=== PATIENT | male | born 2000 | race Caucasian/White ===

== ENCOUNTER 2024-03-24 01:01 | Emergency (ER) | payer OTHER, SELFPAY ==
--- NOTE | ~2024-03-24 | CT_ITS ---
EXAMINATION: CT brain wo con DATE: 03/24/2024 02:05 INDICATION: Altered mental status TECHNIQUE: Computed tomography (CT) of the head was performed without intravenous contrast. Sagittal and coronal reconstructions were performed. The mA was adjusted according to patient size. Iterative reconstruction technique was employed. The dose-length product was 681.00 mGy-cm. COMPARISON: None FINDINGS: There is no acute or chronic intracranial hemorrhage. There is no infarct. The ventricles are normal and symmetric. The orbits and mastoid air cells are normal. Mild mucosal thickening in the left ethmo id sinus. IMPRESSION: 1. Normal brain. Reviewed, dictated and finalized at location A. TOR IMPRESSION: 1. Normal brain.
[2024-03-24 01:03] VITALS: BP 134/80; PULSE 93; RESP 21; TEMP 35.2; O2SAT 100
[2024-03-24 01:19] VITALS: TEMP 35.2
[2024-03-24 01:35] LABS: Basophils Absolute Auto 0.1 K/mm3 (0.0-0.1); Basophils Percent Auto 0.7 % (0.2-1.2); Eosinophils Percent Auto 0.3 % (0-4.4); Hematocrit 45.6 % (42.0-52.0); Hemoglobin 15.5 g/dL (14.0-18.0); Immature Granulocyte Absolute 0.04 K/mm3 (0.00-0.031); Immature Granulocyte Percent A 0.3 % (0-0.5); Lymphocytes Absolute Auto 1.74 K/mm3 (0.9-3.2); Lymphocytes Percent Auto 14.3 % (18.3-44.2); Mean Platelet Volume 9.3 fl (7.4-10.4); Monocytes Absolute Auto 1.2 K/mm3 (0.1-0.6); Monocytes Percent Auto 9.9 % (2.6-8.5); Neutrophils Absolute Auto 9.1 K/mm3 (1.3-6.7); Neutrophils Percent Auto 74.5 % (45.5-73.1); Platelet Count Result 228 k/mm3 (150-375); Red Blood Count 4.85 M/mm3 (4.6-6.20); Red Cell Distribution Width 11.8 % (11.5-14.5); White Blood Count 12.2 K/mm3 (4.5-10.0)
[2024-03-24 01:42] LABS: Glucose Point of Care 129 mg/dl (65-105)
[2024-03-24 01:46] LABS: Alanine Aminotransferase 19 U/L (6-50); Albumin Level 4.8 g/dL (3.5-5.1); Alkaline Phosphatase 87 U/L (38-126); Anion Gap 13 mmol/L (4-12); Aspartate Amino Transferase 25 U/L (17-59); Bilirubin,Total 0.7 mg/dL (0.2-1.3); Blood Urea Nitrogen 7 mg/dL (9-20); Calcium 8.7 mg/dL (8.4-10.2); Carbon Dioxide 21 mmol/L (22-30); Chloride 106 mmol/L (98-107); Estimated CRCL calculation 119 ml/min; Estimated Glomerular Filt Rate > 60; Glucose 143 mg/dL (65-110); Potassium 2.9 mmol/L (3.4-5.0); Sodium 140 mmol/L (137-145)
[2024-03-24 01:48] LABS: Ethanol 248 mg/dL (<10)
[2024-03-24] MEDS: SODIUM CHLORIDE 0.9% IV 3,000 ML 999 ML IV CONT (01:48)
[2024-03-24] MEDS: ONDANSETRON INJ 4 MG/2 ML VIAL IV PUSH (01:48)
[2024-03-24 02:11] LABS: Amphetamine Screen Urine Negative (Negative); Barbiturate Screen Urine Negative (Negative); Benzodiazepines Screen Urine Negative (Negative); Cannabinoid Screen Urine Negative (Negative); Cocaine Screen Urine Negative (Negative); Methadone Screen Urine Negative (Negative); Opiate Screen Urine Negative (Negative); Phencyclidine Screen Urine Negative (Negative)
[2024-03-24] MEDS: POTASSIUM CHLORIDE INJ 40 MEQ in SODIUM CHLORIDE 0.9% IV 500 ML 130 MEQ IVPB (02:31)
--- NOTE | 2024-03-24 02:52 | ED_ITS ---
HPI - General Adult General Chief complaint: Alcohol Stated complaint: etoh History of Present Illness HPI narrative: This is a 23-year-old male presenting for intoxication. Patient was out at a bar celebrating . He drink a large amount of alcohol. He in a any food. Ambulance was called because he passed out. History obtained from family who spoke to 1 of his friends. Patient is currently laying on the bed moaning. Related Data Allergies Allergy/AdvReac Type Severity Reaction Status Date / Time No Known Allergies Allergy Verified 03/24/24 01:49 Exam 2 Narrative: APPEARANCE:Patient is pale and diaphoretic Head: atraumatic. EYES: EOMI, NOSE: Atraumatic NECK: Trachea midline RESPIRATORY: No increased rate of breathing clear to auscultation CARDIOVASCULAR: RRR, ABDOMINAL: Non-distended soft nontender MUSCULOSKELETAl: No obvious deformities NEURO: Alert. Moving 4/4 extremities Course Vital Signs Vital signs: Vital Signs Temperature 95.4 F L 03/24/24 01:03 Pulse Rate 93 03/24/24 01:03 Respiratory Rate 21 H 03/24/24 01:03 Blood Pressure 134/80 03/24/24 01:03 Pulse Oximetry 100 03/24/24 01:03 Temperature 97.7 F 03/24/24 03:27 Pulse Rate 89 03/24/24 03:27 Respiratory Rate 15 03/24/24 03:27 Blood Pressure 126/78 03/24/24 03:27 Pulse Oximetry 100 03/24/24 03:27 Medical Decision Making [facility] Narrative Medical decision making narrative: -Course: 23-year-old male presenting after being found down at a bar. Alcohol level 248. blood glucose normal. Patient given 3 L of fluid. Given potassium supplementation. Official read on the CT head was still pending, however the patient has woken up and is now A&O x3 admits to drinking a large amount. No history/signs of trauma. They are requesting discharge. Patient is discharged into the care of his parents. -DDX includes but is not limited to: Alcohol abuse, substance use disorder, ICH Vital Signs Vital Signs: Vital Signs Temperature 95.4 F L 03/24/24 01:03 Pulse Rate 93 03/24/24 01:03 Respiratory Rate 21 H 03/24/24 01:03 Blood Pressure 134/80 03/24/24 01:03 Pulse Oximetry 100 03/24/24 01:03 Temperature 97.7 F 03/24/24 03:27 Pulse Rate 89 03/24/24 03:27 Respiratory Rate 15 03/24/24 03:27 Blood Pressure 126/78 03/24/24 03:27 Pulse Oximetry 100 03/24/24 03:27 Lab Data 03/24/24 01:28 03/24/24 01:28 Labs: Lab Results 03/24/24 03/24/24 03/24/24 Range/Units 01: 01:28 01:47 WBC 12.2 H (4.5-10.0) K/mm3 RBC 4.85 (4.6-6.20) M/mm3 Hgb 15.5 (14.0-18.0) g/dL Hct 45.6 (42.0-52.0) % MCV 94.0 (80-100) fl MCH 32.0 (26-34) pg MCHC 34.0 (32-36) g/dl RDW 11.8 (11.5-14.5) % Plt Count 228 (150-375) k/mm3 MPV 9.3 (7.4-10.4) fl Immature Gran % (Auto) 0.3 (0-0.5) % Neut % (Auto) 74.5 H (45.5-73.1) % Lymph % (Auto) 14.3 L (18.3-44.2) % [place] % (Auto) 9.9 H (2.6-8.5) % Eos % (Auto) 0.3 (0-4.4) % Baso % (Auto) 0.7 (0.2-1.2) % Lymph # (Auto) 1.74 (0.9-3.2) K/mm3 [place] # (Auto) 1.2 H (0.1-0.6) K/mm3 Eos # (Auto) 0.0 (0-0.3) K/mm3 Baso # (Auto) 0.1 (0.0-0.1) K/mm3 Abs Immat Gran (auto) 0.04 H (0.00-0.031) K/mm3 Absolute Neuts (auto) 9.1 H (1.3-6.7) K/mm3 Absolute Nucleated RBC 0.000 (0.0-0.012) K/mm3 Nucleated RBC % 0.0 (0.0-0.2) % Sodium 140 (137-145) mmol/L Potassium 2.9 L (3.4-5.0) mmol/L Chloride 106 (98-107) mmol/L Carbon Dioxide 21 L (22-30) mmol/L Anion Gap 13 H (4-12) mmol/L BUN 7 L (9-20) mg/dL Creatinine 0.70 (0.7-1.3) mg/dL Estim Creat Clear Calc 119 ml/min Estimated GFR > 60 (59 - ) Glucose 143 H (65-110) mg/dL POC Capillary Glucose 129 H (65-105) mg/dl Calcium 8.7 (8.4-10.2) mg/dL Total Bilirubin 0.7 (0.2-1.3) mg/dL AST 25 (17-59) U/L ALT 19 (6-50) U/L Alkaline Phosphatase 87 (38-126) U/L Total Protein 8.0 (6.3-8.2) g/dL Albumin 4.8 (3.5-5.1) g/dL Urine Opiates Screen Negative (Negative) Urine Methadone Screen Negative (Negative) Ur Barbiturates Screen Negative (Negative) Ur Phencyclidine Scrn Negative (Negative) Ur Amphetamine Screen Negative (Negative) U Benzodiazepines Scrn Negative (Negative) Urine Cocaine Screen Negative (Negative) U Cannabinoids Screen Negative (Negative) Ethyl Alcohol 248 (<10) mg/dL Discharge Plan Discharge Clinical Impression: Alcoholic intoxication Patient Disposition: Home, Self-Care Condition: Stable Instructions: Antibiotic Form, Abuse of Alcohol (ED) Additional Instructions: Please drink responsibly. Return if you develop any new or worsening symptoms. Patient Language: Iraqi Prescriptions: New ondansetron 4 mg tablet,disintegrating 4 mg PO Q8H PRN (Reason: nausea and vomiting) Qty: 30 0RF
[2024-03-24 03:27] VITALS: BP 126/78; PULSE 89; RESP 15; TEMP 36.5; O2SAT 100
[2024-03-24] MEDS: POTASSIUM CHLORIDE 20 MEQ PACKET (FOR LIQUID) 40 MEQ PO (04:26)
[2024-03-24 04:33] VITALS: BP 126/84; PULSE 68; RESP 15; O2SAT 100
--- OUTSIDE RECORDS SUMMARY | 2024-03-31 02:10 | XMS_ITS | Clinical Summary ---
Author Organization [facility] [address] [facility] Address [address] [address] Care Team Providers Care Internet Systems Administrator Name Role Phone Carlyle Stokes MD Primary Care Provider [phone] Karolina Martínez FIBER DESIGN ENGINEER Unavailable [phone] Allergies No known active allergies Medications ondansetron ODT (ZOFRAN-ODT) 4 mg disintegrating tablet Dissolve 1 tablet oral every 4 hours as needed for nausea or vomiting. 15 tablet 3 Active MULTIVITAMIN ORAL Take 1 tablet by mouth daily Active adapalene-benzoyl peroxide (Epiduo Forte) 0.3-2.5 % gel with pumpIndications:Ac ne, unspecified acne type Apply 0.25 g (1 Pump total) topically nightly APPLY A PEA-SIZED AMOUNT TOPICALLY TO CLEAN DRY SKIN AT BEDTIME 45 g 11 4 Active Active Problems Problem Noted Date Diagnosed Date Annual physical exam 05/20/2023 Assessment & Plan (05/20/2023 10:20 AM PROBATION COUNSELOR): Visit preventive in nature. Screening labs ordered. Will message through [employer] for results once received. Reviewed safety and congratulated on healthy lifestyle. Follow up in 1 year or sooner for any concerns. Acne 05/20/2023 Assessment & Plan (05/20/2023 10:21 AM PROBATION COUNSELOR): Well controlled on Epiduo. History of choking 07/26/2022 Assessment & Plan (07/26/2022 11:29 AM CDT): Reviewed ER documentation and imaging. Patient is doing well and not having any difficulty eating/choking at this time. No longer feeling any nausea. No cough or reflux symptoms. I reviewed follow-up precautions with patients and he will follow-up as needed. BMI less than 19,adult 07/26/2022 Scoliosis 07/26/2022 Assessment & Plan (07/26/2022 1:53 PM CDT): Very mild; denies neck, back or hip pain. Will continue to monitor. Encounter for medical examination to establish c are 01/25/2021 Assessment & Plan (01/25/2021 3:43 PM CDT): -reviewed screening guidelines: no family history of breast or colon cancer. -Colonoscopy recommended at 50 years of age. -UTD on immunizations. Declines flu vaccine. -discussed diet/exercise: daily recommendations of 20-30 minutes physical activity daily, watch fat/sugar intake. -denies safety/violence. Wears seatbelt. Aware to not text/talk and drive. -does not smoke nor drink ETOH -lives at home with supportive family Anticipatory guidelines for teenagers: -healthy dietary habits. -reduction of injuries through helmets for bicycle/motorcycle and car seatbelts -regular exercise: 20-30 minutes per day at minimum -good sleep habits: optimal sleep for teen is 8-10 hours per night -sun protection: sunscreen, long sleeves, hats when out in sun. -responsible sexual behaviors: abstinence, condoms. Safe versus safer sex. -avoidance of tobacco, alcohol and illegal substances. -social media: avoid online behaviors that have negative consequences (sexting, sharing personal information/pictures with strangers) -strategies to deal with bullying. Refused influenza vaccine 01/25/2021 Assessment & Plan (01/25/2021 3:39 PM CDT): Discussed and the patient refuses immunization today. Educated regarding the need to vaccinate for personal protection and to limit the viruses in the community to protect those most vulnerable. Resolved Problems Problem Noted Date Diagnosed Date Resolved Date Body mass index (BMI) less than 16.5 01/25/2021 07/26/2022 Assessment & Plan (01/25/2021 3:39 PM CDT): Watches intake & exercises. Discussed healthy diet and importance of regular physical activity. Encounter for screening for lipid disorder 01/25/2021 01/25/2021 Encounters Date Type Department Care Team Description 03/24/2024 Orders Only [facility] Health Information Management [address] [place] [id number] Scanning, Provider from Last 3 Months Immunizations Name Administration Dates Next Due DTaP 10/22/2007, 5,04/12/2003,02/09,2002 HPV9 05/23/2017,10/10/2016 Hep A, Pediatric 04/15/2013,09/25/2012 Hep B / HiB 02/09/2003,2002 Hep B, Adolescent or Pediatric 04/25/2004 HiB 01/13/2004 IPV 10/22/2007, 5,02/09/2003,12/16 Influenza LAIV (Nasal) 02/04/2012 Influenza Nasal, Unspecified 01/15/2013 Influenza, Quadrivalent, Gisel l Culture-based MDCK, Preservative Free, Antibiotic Free, Intramuscular 01/01/2020,02/24/2019,01/10/2018,12/30 Influenza, Quadrivalent, Rec ombinant, Egg Free, Preservative Free, Intramuscular 02/02/2021 Influenza, Quadrivalent, Spl it, Preservative Free, Intramuscular 01/04/2022,01/01/2016,12/12/2014 Influenza, Trivalent, IM (MDV) 01/03/2014 Influenza, Unspecified 05/20/2023(Deferr ed: Patient Refused),12/22/2021(Deferred: Patient Refused),01/25/2021(Deferred: Patient Refused) MMR 10/22/2007,10/19/2003 Meningococcal B, OMV (Bexsero) 11/04/2019,2018 Meningococcal Conjugate (Menveo) 10/22/2018,09/21 Pneumococcal Conjugate 7-Valent 01/13/20 04,04/12/2003,02/09/2003,12/16 Tdap 10/01/2013 Varicella 09/25/2012,10/19/2003 Surgical History Surgery Date Site/Laterality Comments TONSILLECTOMY 03/24/2008 - 03/23/2009 Bilateral WISDOM TOOTH EXTRACTION 03/24/2018 - 03/23/2019 Bilatera l Medical History Medical History Date Comments Heart murmur 09/2002 Family History Medical History Relation Name Comments Cancer Maternal Grandfather Andres Sherman Coronary artery disease Maternal Grandfather Andres francis Pancreatic cancer Maternal Grandfather Andres Sherman Relation Name Status Comments Father Kade Alive Maternal Grandfather Andres Sherman Alive Mother Avis Alive Social History Tobacco Use Types Packs/Day Years Used Date Smoking Tobacco: Never Cigarettes Smokeless Tobacco: Never Tobacco Cessation:Counseling Given: Not Answered AUDIT-C Answer Date Recorded Q1: How often do you have a drink containing alcohol? Never 05/20/2023 Q2: How many drinks containi ng alcohol do you have on a typical day when you are drinking? Patient does not drink Q3: How often do you have si x or more drinks on one occasion? Never 05/20/2023 PHQ-2 Answer Date Recorded PHQ-2 Total Score (If total score is 3 or more points, staff should administer the PHQ-9) 0 05/20/2023 Personal Safety Answer Date Recorded Getting School Help Needed Not on file 09/13 Sex and Gender Information Value Date Recorded Sex Assigned at Not on file Legal Sex Male 2:03 PM CDT Gender Identity Male 03/19/2024 9:16 AM PROBATION COUNSELOR Sexual Orientation Straight 03/19/2024 9: 16 AM PROBATION COUNSELOR Obstetrics History Last Filed Vital Signs Vital Sign Reading Time Taken Comments Blood Pressure 130/66 05/20/2023 9:59 AM PROBATION COUNSELOR Pulse 92 05/20/2023 9:59 AM PROBATION COUNSELOR Temperature 36.9 ??C (98.4 ??F) 05/20/2023 9:59 AM CS T Respiratory Rate 18 05/20/2023 9:59 AM PROBATION COUNSELOR Oxygen Saturation 96% 05/20/2023 9:59 AM PROBATION COUNSELOR Inhaled Oxygen Concentration - - Weight 56.2 kg (123 lb 12.8 oz) 05/20/2023 9:59 AM PROBATION COUNSELOR Height 181.6 cm (5' 11.5 ) 05/20/2023 9:59 AM CS T Body Mass Index 17.03 05/20/2023 9:59 AM PROBATION COUNSELOR Plan of Treatment Health Maintenance Due Date Last Done Comments Hepatitis C Screening 2002 DTaP/Tdap/Td Vaccine (7 - Td or Tdap) 10/02/2023 10/01/2013, 10/22/2007, 04/25/2004, Additional history exists Covid-19 Vaccine (4 - 2023-2 5 season) 2023 04/12/2021, 08/28/2020, 08/07/2020 Influenza Vaccine (#1) 2023 , 02/02/2021, 01/01/2020, Additional history exists Depression Screening 05/20/2024 05/20/2023, 07/26/2022, 01/28/2022, Additional history exists Regular Well Visit/Exam 18-64 05/20/2024 05/20/2023, 01/28/2022 Pneumococcal vaccine <65 Completed 004, 04/12/2003, 02/09/2003, Additional history exists Varicella Vaccines Completed 09/25/2012, 10/19/2003 HPV Vaccines Completed 05/23/2017, 10/10/2016 Meningococcal Vaccine Completed 10/22/2018, 015 Meningococcal B Vaccine Completed 11/04/2019, 10/22 Procedures Procedure Name Priority Date/Time Associated Diagnosis Comments SCAN - RADIOLOGY/IMAGING 03/24/2024 from Last 3 Months Results * SCAN - RADIOLOGY/IMAGING (03/24/2024) Anatomical Region Laterality Modality Other us Provider Scanning Final Result from Last [address] [place] [address] [facility] Address: [address] [address] [facility] Address: [facility] [id number] [place] [phone] [employer] [facility] H[facility]/PPO Address: [address] [address] [place] [address] Care Teams Internet Systems Administrator Relationship Specialty Start Date End Date Carlyle Stokes MD [address] [place] [id number] PCP - General Family Medicine 05/24/21 Karolina Martínez NP [address] [place] [address] Nurse Practitioner Family Medicine 05/24/21
--- OUTSIDE RECORDS SUMMARY | 2024-03-31 02:10 | XMS_ITS | Clinical Summary ---
Author Organization [facility] Address [address] [place] [phone] Phone Care Team Providers Care Investment Officer Name Role Phone Provider, Unknown Primary Care Provider Unavaila ble Allergies No known active allergies Medications Multiple Vitamin (MULTIVITAMIN PO) Take by mouth. Active Adapalene-Benzoy l Peroxide 0.3-2.5 % Gel Apply 1 Pump. 01/28/2022 Active Active Problems No known active problems Social History Tobacco Use Types Packs/Day Years Used Date Smoking Tobacco: Never Smokeless Tobacco: Never Tobacco Cessation:Counseling Given: Not Answered Alcohol Use Standard Drinks/Week Comments Never 0 (1 standard drink = 0.6 oz pur e alcohol) Sex and Gender Information Value Date Recorded Sex Assigned at Not on file Legal Sex Male 7:13 PM CDT Gender Identity Not on file Sexual Orientation Not on file Last Filed Vital Signs Vital Sign Reading Time Taken Comments Blood Pressure 122/66 12/28/2022 1:24 PM CDT Pulse 112 12/28/2022 1:24 PM CDT Temperature 38.5 ??C (101.3 ??F) 12/28/2022 1:24 PM C DT Respiratory Rate 18 12/28/2022 1:24 PM CDT Oxygen Saturation 99% 12/28/2022 1:24 PM CDT Inhaled Oxygen Concentration - - Weight - - Height - - Body Mass Index - - Plan of Treatment Health Maintenance Due Date Last Done Comments Hepatitis C Virus (HCV) Screening 2002 Influenza Immunization (#1) 11/23/202312/22, 02/02/2021, 01/01/2020, Additional history exists SARS-COV-2 Immunization (4 - 2024-25 season) 2023 04/12/2021, 08/28/2020, 08/07/2020 Respiratory Syncytial Virus (RSV) Immunization (Adult) (1 - 1-dose 75+ series) 2077 Pneumococcal Immunization Combined Aged Out 01/13/2004, 04/12/2003, 02/09/2003, Additional history exists No longer eligible based on patient's age to complete this topic Hepatitis B Immunization Completed 005, 02/09/2003, 2002 DTaP/Tdap/Td Immunization Discontinued 2013, 10/22/2007, 04/25/2004, Additional history exists TdaP Immunization Completed 10/01/2013 Human Papillomavirus (HPV) Immunization Completed 05/23/2017, 10/10/2016 Meningococcal Immunization (ACWY) Completed 10/22/2018, 10/06/2014 Meningococcal B Immunization Completed 11/04/2019, 10/22/2018 Rotavirus Immunization Aged Out No lo nger eligible based on patient's age to complete this topic Insurance Care Teams Investment Officer Relationship Specialty Start Date End Date Provider, Unknown UNKNOWN PCP - General 12/28/22
--- OUTSIDE RECORDS SUMMARY | 2024-03-31 02:10 | XMS_ITS | Encounter Summary ---
Author Organization [facility] Address [address] [place] [address] Phone Care Team Providers Care Marble Setter Helper Name Role Phone Provider, Unknown Primary Care Provider Unavaila ble Reason for Visit * Reason Comments Cough Sore Throat Fever Encounter Details Date Type Department Care Team (Latest Contact Info) Description 12/28/2022 1:30 PM CDT Urgent Care Visit [facility] [place] [id number] [place] [id number] Andrea Rangel, RIA [facility] [place] [id number] Bacterial upper respiratory infection (Primary Dx); Sore throat; Fever, unspecified fever cause Discharge Disposition: Discharged to home or Selfcare Social History Tobacco Use Types Packs/Day Years [...] on file Sexual Orientation Not on file COVID-19 Exposure Response Date Recorded In the last 10 days, have yo u been in contact with someone who was confirmed or suspected to have Coronavirus/COVID-19? No / Unsure 12/28/2022 1:17 PM CDT documented as of this encounter Last Filed Vital Signs Vital Sign Reading Time Taken Comments Blood Pressure 122/66 12/28/2022 1:24 PM CDT Pulse 112 12/28/2022 1:24 PM CDT Temperature 38.5 ??C (101.3 ??F) 12/28/2022 1:24 PM C DT Respiratory Rate 18 12/28/2022 1:24 PM CDT Oxygen Saturation 99% 12/28/2022 1:24 PM CDT Inhaled Oxygen Concentration - - Weight - - Height - - Body Mass Index - - documented in this encounter Patient Instructions * Patient Instructions* Andrea Rangel PAC - 12/28/2022 1:30 PM CDT Rx for amoxicillin sent to pharmacy Patient given pharyngitis and upper respiratory infection discharge instructions See your primary care provider in 3-4 days if not better Patient given 600 mg ibuprofen p.o. without complication * Attachments The following attachments cannot be sent through Care Everywhere. * Pharyngitis [id number] (Cypriot) * Upper Respiratory Infection Adult [id number] (Cypriot) documented in this encounter Progress Notes * Nick Ivan - 12/28/2022 1:30 PM CDT Ronald complains of Cough, sore throat, nasal congestion, headache, and fever. Pt states symptoms started last Friday and have worsened since onset. Pt states. Pt denies body aches, nausea and vomiting. Pt has taken tylenol and cough syrup, which have provided mild relief. Pt states temperature reached over 102F last weekend. Pt states sore throat pain is currently 2/10 but was 8/10 yesterday. Cough This is a new problem. Episode onset: last Friday. The problem has been gradually worsening. The problem occurs constantly. Associated symptoms include a fever, headaches, nasal congestion and a sore throat. Treatments tried: tylenol and cough syrup. The treatment provided mild relief. Sore Throat Associated symptoms include headaches. Fever Associated symptoms include headaches and a sore throat. Today's Review of Systems Constitutional: Positive for fever. HENT: Positive for sore throat. Neurological: Positive for headaches. * Andrea Rangel, PAC - 12/28/2022 1:30 PM CDT HPI: Ronald Christensen is a 22 y.o. male in the [facility] care today for one-week history of fatigue, fever, postnasal drainage, runny nose, sinus pressure, sore throat, cough and headache, he has taken Tylenol and cough syrup for this which have not helped, he has been vaccinated for COVID, no known COVID exposure There is no problem list on file for this patient. Available past, family, surgical, and social history reviewed and updated in the chart. ROS: Review of Systems Constitutional: Positive for fatigue and fever. Negative for chills. HENT: Positive for postnasal drip, rhinorrhea, sinus pressure and sore throat. Negative for ear pain. Eyes: Negative for pain and visual disturbance. Respiratory: Positive for cough. Negative for shortness of breath. Cardiovascular: Negative for chest pain and palpitations. Gastrointestinal: Negative for abdominal pain and vomiting. Genitourinary: Negative for dysuria and hematuria. Musculoskeletal: Negative for arthralgias and back pain. Skin: Negative for color change and rash. Neurological: Positive for headaches. Negative for seizures and syncope. All other systems reviewed and are negative. PE: BP 122/66 (BP Location: Right Arm, BP Position: Sitting, BP Cuff Size: Large) Pulse (!) 112 Temp (!) 101.3 ??F (38.5 ??C) (Temporal) Resp 18 SpO2 99% Physical Exam Vitals and nursing note reviewed. Constitutional: General: He is not in acute distress. Appearance: He is well-developed. Comments: Temperature 101.3??, heart rate 112 HENT: Head: Normocephalic and atraumatic. Right Ear: Tympanic membrane, ear canal and external ear normal. Left Ear: Tympanic membrane, ear canal and external ear normal. Mouth/Throat: Pharynx: Posterior oropharyngeal erythema present. Eyes: Conjunctiva/sclera: Conjunctivae normal. Cardiovascular: Rate and Rhythm: Normal rate and regular rhythm. Pulses: Normal pulses. Heart sounds: No murmur heard. Pulmonary: Effort: Pulmonary effort is normal. No respiratory distress. Breath sounds: Normal breath sounds. Abdominal: Palpations: Abdomen is soft. Tenderness: There is no abdominal tenderness. Musculoskeletal: General: No swelling. Cervical back: Neck supple. Skin: General: Skin is warm and dry. Capillary Refill: Capillary refill takes less than 2 seconds. Neurological: Mental Status: He is alert and oriented to person, place, and time. Psychiatric: Mood and Affect: Mood normal. ASSESSMENT/PLAN: Diagnoses and all orders for this visit: Bacterial upper respiratory infection - amoxicillin (AMOXIL) 875 MG Tablet; Take 1 Tablet by mouth 2 times daily for 7 days. Sore throat - POCT GROUP A STREP SCREEN RAPID Fever, unspecified fever cause - ibuprofen (MOTRIN) tablet 600 mg Other orders - Multiple Vitamin (MULTIVITAMIN PO); Take by mouth. - Adapalene-Benzoyl Peroxide 0.3-2.5 % Gel; Apply 1 Pump. Patient Instructions Rx for amoxicillin sent to pharmacy Patient given pharyngitis and upper respiratory infection discharge instructions See your primary care provider in 3-4 days if not better Patient given 600 mg ibuprofen p.o. without complication Chief complaint and all history documented by ancillary staff were reviewed and verified, with additions or corrections, as appropriate. documented in this encounter Plan of Treatment Not on file documented as of this encounter Procedures Procedure Name Priority Date/Time Associated Diagnosis Comments POCT GROUP A STREP SCREEN RAPID Routine 12/28/2022 1:44 PM CDT Sore throat documented in this encounter Results * POCT GROUP A STREP SCREEN RAPID (12/28/2022 1:44 PM CDT) POC STREP SCRN Presumptive negative Invalid, Presumptive negative, VOID POC STREP SCREEN CONTROL Traffic Control Supervisor Pass 12/28/2022 1:44 PM CDT Andera ROLLINS POINT OF CARE TESTING (MANUAL ) Final Result documented in this encounter Visit Diagnoses Diagnosis Bacterial upper respiratory infection- Primary Sore throat Acute pharyngitis Fever, unspecified fever cause documented in this encounter Administered Medications Inactive Administered Medications - up to 3 most recent administrations Medication Order MAR Action Action Date Dose Rate Site ibuprofen (MOTRIN) tablet 600 mg 600 mg, Oral, ONCE, 1 dose, On 12/28/22 at 1430Indications:Fever, unspecified fever cause Given 12/28/2022 2:01 PM CDT 600 mg documented in this encounter Care Teams Marble Setter Helper Relationship Specialty Start Date End Date Provider, Unknown UNKNOWN PCP - General 12/28/22 documented as of this encounter
--- OUTSIDE RECORDS SUMMARY | 2024-03-31 02:10 | XMS_ITS | Encounter Summary ---
Author Organization [facility] [employer] Care Team Providers Care Health And Safety Consultant Name Role Phone Provider, Unknown Primary Care Provider Unavaila ble Encounter Details Date Type Department Care Team (Latest Contact Info) Description 12/28/2022 Travel Social History Tobacco Use Types Packs/Day Years Used Date Smoking Tobacco: Never Smokeless Tobacco: Never Alcohol Use Standard Drinks/Week Comments Never 0 [...] PM CDT documented as of this encounter Plan of Treatment Not on file documented as of this encounter Visit Diagnoses Not on filedocumented in this encounter Care Teams Health And Safety Consultant Relationship Specialty Start Date End Date Provider, Unknown UNKNOWN PCP - General 12/28/22 documented as of this encounter
--- OUTSIDE RECORDS SUMMARY | 2024-03-31 02:10 | XMS_ITS | Encounter Summary ---
Author Organization [facility] Healthcare Address [address] [place] [id number] Care Team Providers Care Artificial Plastic Eye Maker Name Role Phone Carlyle Stokes MD Primary Care Provider [phone] Karolina Martínez NP Unavailable [phone] Reason for Visit * Reason Comments Preventative Care Pt here for his AWV. Encounter Details Date Type Department Care Team ([facility] Contact Info) Description 05/20/2023 10:00 AM COMMERCIAL REAL ESTATE PARALEGAL Office Visit [facility] [address] [address] Miladys Boucher NP [address] [place] [id number] Annual physical exam (Primary Dx); Acne, unspecified acne type Social History Tobacco Use Types Packs/Day Years [...] 0 05/20/2023 Personal Safety Answer Date Recorded Have you ever been in or are you currently in a harmful physical or emotional relationship or is someone making you feel afraid or unsafe? Denies 07/19/2022 Sex and Gender Information Value Date Recorded Sex Assigned at Not on file Legal Sex Male 2:03 PM CDT Gender Identity Male 03/19/2024 9:16 AM COMMERCIAL REAL ESTATE PARALEGAL Sexual Orientation Straight 03/19/2024 9: 16 AM COMMERCIAL REAL ESTATE PARALEGAL documented as of this encounter Last Filed Vital Signs Vital Sign Reading Time Taken Comments Blood Pressure 130/66 05/20/2023 9:59 AM COMMERCIAL REAL ESTATE PARALEGAL Pulse 92 05/20/2023 9:59 AM COMMERCIAL REAL ESTATE PARALEGAL Temperature 36.9 ??C (98.4 ??F) 05/20/2023 9:59 AM CS T Respiratory Rate 18 05/20/2023 9:59 AM COMMERCIAL REAL ESTATE PARALEGAL Oxygen Saturation 96% 05/20/2023 9:59 AM COMMERCIAL REAL ESTATE PARALEGAL Inhaled Oxygen Concentration - - Weight 56.2 kg (123 lb 12.8 oz) 05/20/2023 9:59 AM COMMERCIAL REAL ESTATE PARALEGAL Height 181.6 cm (5' 11.5 ) 05/20/2023 9:59 AM CS T Body Mass Index 17.03 05/20/2023 9:59 AM COMMERCIAL REAL ESTATE PARALEGAL documented in this encounter Ordered Prescriptions Prescription Sig Dispense Quantity Refills Last Filled Start Date End Date adapalene-benzoyl peroxide (Epiduo Forte) 0.3-2.5 % gel with pumpIndications:Ac ne, unspecified acne type Apply 0.25 g (1 Pump total) topically nightly APPLY A PEA-SIZED AMOUNT TOPICALLY TO CLEAN DRY SKIN AT BEDTIME 45 g 11 05/20/2023 documented in this encounter Progress Notes * Miladys Boucher NP - 05/20/2023 10:00 AM CST Images from the original note were not included. Patient ID: Ronald Christensen is a 22 y.o. male Chief Complaint. Chief Complaint Patient presents with Preventative Care Pt here for his AWV. HPI: Ronald Christensen presents today for annual physical. 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 Exercises. Eats healthy. Denies alcohol, tobacco, vaping. Not sexually active. Acne well controlled on Epiduo. Denies chest pain, shortness of breath, palpitations, bowel, bladder issues. Pleasant young man. 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 Past Medical History: Diagnosis Date Heart murmur 09/2002 Past Surgical History: Procedure Laterality Date TONSILLECTOMY Bilateral 2009 WISDOM TOOTH EXTRACTION Bilateral 2019 HOME MEDICATIONS : MULTIVITAMIN ORAL ondansetron ODT (ZOFRAN-ODT) 4 mg disintegrating tablet adapalene-benzoyl peroxide (Epiduo Forte) 0.3-2.5 % gel with pump adapalene-benzoyl peroxide (Epiduo Forte) 0.3-2.5 % gel with pump No Known Allergies Social History Tobacco Use Smoking status: Never Smokeless tobacco: Never Substance and Sexual Activity Drug use: Never Sexual activity: Not Currently Alcohol Use: Not At Risk (05/20/2023) AUDIT-C Frequency of Alcohol Consumption: Never Average Number of Drinks: Patient does not drink Frequency of Binge Drinking: Never Family History Problem Relation Age of Onset Pancreatic cancer Maternal Grandfather Coronary artery disease Maternal Grandfather Cancer Maternal Grandfather Review of Systems: Review of Systems Constitutional: Negative for chills, fever and unexpected weight change. HENT: Negative for trouble swallowing. Eyes: Positive for visual disturbance (Glasses). Respiratory: Negative for shortness of breath. Cardiovascular: Negative for chest pain and leg swelling. Gastrointestinal: Negative for abdominal pain, blood in stool, constipation and diarrhea. Endocrine: Negative for polydipsia, polyphagia and polyuria. Genitourinary: Negative for difficulty urinating. Musculoskeletal: Negative for arthralgias. Neurological: Negative for light-headedness. Psychiatric/Behavioral: Negative for dysphoric mood. The patient is not nervous/anxious. Vitals: 05/20/23 0959 BP: 130/66 BP Location: Left arm Patient Position: Sitting Pulse: 92 Resp: 18 Temp: 36.9 ??C (98.4 ??F) TempSrc: Oral SpO2: 96% Weight: 56.2 kg (123 lb 12.8 oz) Height: 181.6 cm (5' 11.5 ) Physical Exam: Physical Exam Vitals and nursing note reviewed. Constitutional: General: He is not in acute distress. Appearance: He is well-developed. HENT: Head: Normocephalic and atraumatic. Right Ear: External ear normal. Left Ear: External ear normal. Nose: Nose normal. Eyes: Conjunctiva/sclera: Conjunctivae normal. Pupils: Pupils are equal, round, and reactive to light. Neck: Thyroid: No thyroid mass or thyromegaly. Vascular: No JVD. Trachea: No tracheal deviation. Cardiovascular: Rate and Rhythm: Normal rate and regular rhythm. Heart sounds: Normal heart sounds. Pulmonary: Effort: Pulmonary effort is normal. No respiratory distress. Breath sounds: Normal breath sounds. Abdominal: General: Bowel sounds are normal. There is no distension. Palpations: Abdomen is soft. There is no mass. Tenderness: There is no abdominal tenderness. Musculoskeletal: General: Normal range of motion. Cervical back: Normal range of motion and neck supple. Lymphadenopathy: Cervical: No cervical adenopathy. Skin: General: Skin is warm and dry. Capillary Refill: Capillary refill takes less than 2 seconds. Neurological: Mental Status: He is alert and oriented to person, place, and time. Assessment/Plan Diagnoses and all orders for this visit: Annual physical exam (Primary) Assessment & Plan: Visit preventive in nature. Screening labs ordered. Will message through Hymite for results once received. Reviewed safety and congratulated on healthy lifestyle. Follow up in 1 year or sooner for any concerns. Orders: - CBC with auto differential; Future - Comprehensive metabolic panel; Future - Lipid panel; Future Acne, unspecified acne type Assessment & Plan: Well controlled on Epiduo. Orders: - adapalene-benzoyl peroxide (Epiduo Forte) 0.3-2.5 % gel with pump; Apply 0.25 g (1 Pump total) topically nightly APPLY A PEA-SIZED AMOUNT TOPICALLY TO CLEAN DRY SKIN AT BEDTIME All past family, medical, and social history were reviewed and updated in the EMR as well as current medications. Patient offered no further complaints and was in agreement with plan of care. Patientwas advised regarding dosage, use, and side effects of any new medications. Patient was advised to f/u in office with any worsening or little to no improvement of symptoms. Patient was advised to follow-up regarding the results of testing ordered in office today and that they should hear from us regarding the results in 2-3 business days, discussed benefits of [employer] in regard to patient experience. The patient was given the opportunity to have all questions answered today and was in agreementwith the plan of care. BMI Follow-up includes: education provided. Body mass index is 17.03 kg/m??. There may be grammatical errors in this note due to use of voice recognition software. Miladys Boucher NP ERCIAL REAL ESTATE PARALEGAL documented in this encounter Miscellaneous Notes * Assessment & Plan Note - Miladys Boucher NP - 05/20/2023 10:21 AM CSTAssociated Problem(s): Acne Well controlled on Epiduo. ERCIAL REAL ESTATE PARALEGAL * Assessment & Plan Note - Miladys Boucher NP - 05/20/2023 10:20 AM CSTAssociated Problem(s): Annual physical exam Visit preventive in nature. Screening labs ordered. Will message through Hymite for results once received. Reviewed safety and congratulated on healthy lifestyle. Follow up in 1 year or sooner for any concerns. ERCIAL REAL ESTATE PARALEGAL documented in this encounter Plan of Treatment Scheduled Orders Name Type Priority Associated Diagnoses Orde r Schedule CBC with auto differential Lab Routine Annual physical exam Expected: 05/20/2023 (Approximate), Expires: 05/09/2024 Comprehensive metabolic panel Lab Routine Annual physical exam Expected: 05/20/2023 (Approximate), Expires: 05/09/2024 Lipid panel Lab Routine Annual physical exam Expected: 05/20/2023 (Approximate), Expires: 05/09/2024 documented as of this encounter Visit Diagnoses Diagnosis Annual physical exam- Primary Routine general medical examination at a health care facility Acne, unspecified acne type documented in this encounter Discontinued Medications Medication Sig Discontinue Reason Start Date End Da te adapalene-benzoyl peroxide (Epiduo Forte) 0.3-2.5 % gel with pumpIndications:Acne, unspecified acne type Apply 0.25 g (1 Pump total) topically nightly APPLY A PEA-SIZED AMOUNT TOPICALLY TO CLEAN DRY SKIN AT BEDTIME Reorder 01/28/2022 05/20/2023 documented as of this encounter Historical Medications * This list may reflect changes made after this encounter. MULTIVITAMIN ORAL Take 1 tablet by mouth daily added in this encounter Care Teams Artificial Plastic Eye Maker Relationship Specialty Start Date End Date Carlyle Stokes MD [address] [place] [address] PCP - General Family Medicine 05/24/21 Karolina Martínez NP [address] [place] [address] Nurse Practitioner Family Medicine 05/24/21 documented as of this encounter
--- OUTSIDE RECORDS SUMMARY | 2024-03-31 02:10 | XMS_ITS | Referral Summary ---
Author Organization [address] Address [address] [place] [address] Care Team Providers Care System Support Technician Name Role Phone Carlyle Stokes MD Primary Care Provider [phone] Karolina Martínez NP Unavailable [phone] Encounters Date Type Department Care Team Description 03/24/2024 Orders Only [facility] Health Information Management [address] [place] [phone] Scanning, Provider from Last 3 Months Allergies No known active allergies Medications ondansetron [...] 05/20/2023 Assessment & Plan (05/20/2023 10:20 AM CONTACT CENTER PROFESSIONAL): Visit preventive in nature. Screening labs ordered. Will message through [employer] David for results once received. Reviewed safety and congratulated on healthy lifestyle. Follow up in 1 year or sooner for any concerns. Acne 05/20/2023 Assessment & Plan (05/20/2023 10:21 AM CONTACT CENTER PROFESSIONAL): Well controlled on Epiduo. History of choking [...] for screening for lipid disorder 01/25/2021 01/25/2021 Immunizations Name Administration Dates Next Due DTaP [...] 7-Valent 01/13/20 04,04/12/2003,02/09/2003,12/16 Tdap 10/01/2013 Varicella 09/25/2012,10/19/2003 Social History Tobacco Use Types Packs/Day Years [...] CDT Gender Identity Male 03/19/2024 9:16 AM CONTACT CENTER PROFESSIONAL Sexual Orientation Straight 03/19/2024 9: 16 AM CONTACT CENTER PROFESSIONAL Last Filed Vital Signs Vital Sign Reading Time Taken Comments Blood Pressure 130/66 05/20/2023 9:59 AM CONTACT CENTER PROFESSIONAL Pulse 92 05/20/2023 9:59 AM CONTACT CENTER PROFESSIONAL Temperature 36.9 ??C (98.4 ??F) 05/20/2023 9:59 AM CS T Respiratory Rate 18 05/20/2023 9:59 AM CONTACT CENTER PROFESSIONAL Oxygen Saturation 96% 05/20/2023 9:59 AM CONTACT CENTER PROFESSIONAL Inhaled Oxygen Concentration - - Weight 56.2 kg (123 lb 12.8 oz) 05/20/2023 9:59 AM CONTACT CENTER PROFESSIONAL Height 181.6 cm (5' 11.5 ) 05/20/2023 9:59 AM CS T Body Mass Index 17.03 05/20/2023 9:59 AM CONTACT CENTER PROFESSIONAL Plan of Treatment Not on file Procedures Procedure Name Priority Date/Time Associated Diagnosis Comments SCAN - RADIOLOGY/IMAGING 03/24/2024 from Last 3 Months Results * SCAN - RADIOLOGY/IMAGING (03/24/2024) Anatomical Region Laterality Modality Other us Provider Scanning Final Result from Last 3 Months Insurance [facility] Care Teams System Support Technician Relationship Specialty Start Date End Date Carlyle Stokes MD [address] [place] [address] PCP - General Family Medicine 05/24/21 Karolina Martínez NP [address] [place] [address] Nurse Practitioner Family Medicine 05/24/21
--- OUTSIDE RECORDS SUMMARY | 2024-03-31 02:10 | XMS_ITS | Encounter Summary ---
Author Organization [facility] Address [address] [place] [address] Care Team Providers Care V Belt Builder Name Role Phone Carlyle Stokes MD Primary Care Provider [phone] Karolina Martínez NP Unavailable Reason for Visit * Reason Comments Follow-up Pt at [facility] 07/19 chu wilde on food, nausea and vomiting Encounter Details Date Type Department Care Team (Late st Contact Info) Description 07/26/2022 11:00 AM CDT Office Visit [facility] [address] [address] Tia Barragan NP [address] [place] [address] History of choking (Primary Dx); Scoliosis, unspecified scoliosis type, unspecified spinal region; BMI less than 19,adult Social History Tobacco Use Types Packs/Day Years Used Date Smoking Tobacco: Never Smokeless Tobacco: Never PHQ-2 Answer Date Recorded PHQ-2 Total Score (If total score is 3 or more points, staff should administer the PHQ-9) 0 07/26/2022 Personal Safety Answer Date Recorded Have you ever been in or are you currently in a harmful physical or emotional relationship or is someone making you feel afraid or unsafe? Denies 07/19/2022 Sex and Gender Information Value Date Recorded Sex Assigned at Not on file Legal Sex Male 2:03 PM CDT Gender Identity Male 03/19/2024 9:16 AM FEDERAL AGENT Sexual Orientation Straight 03/19/2024 9: 16 AM FEDERAL AGENT documented as of this encounter Last Filed Vital Signs Vital Sign Reading Time Taken Comments Blood Pressure 120/62 07/26/2022 10:47 AM CDT Pulse 89 07/26/2022 10:47 AM CDT Temperature 36.9 ??C (98.4 ??F) 07/26/2022 10:47 AM C DT Respiratory Rate 16 07/26/2022 10:47 AM CDT Oxygen Saturation 99% 07/26/2022 10:47 AM CDT Inhaled Oxygen Concentration - - Weight 58.2 kg (128 lb 6.4 oz) 07/26/2022 10:47 AM CDT Height 181.6 cm (5' 11.5 ) 07/26/2022 10:47 AM C DT Body Mass Index 17.66 07/26/2022 10:47 AM CDT documented in this encounter Progress Notes * Tia Barragan, FINANCIAL ADV[employer] - 07/26/2022 11:00 AM CDT Images from the original note were not included. [facility] Chief Complaint. Chief Complaint Patient presents with Follow-up Pt at [facility] 07/19 choking on food, nausea and vomiting HPI. Patient is a 21 y.o. male Patient here today for follow up after episode of choking at home 1 week ago. Choking on a piece ofchicken and mother performed heimlich maneuver successfully. Patient then had several bouts of vomiting, clear emesis which prompted him to go the ER. CXR clear and normal CT scan. He Denies any history of difficulty swallowing, coughing or choking on food. No heart burn. Incidental finding of scoliosis and mild disc bulging of cervical spine on CT. Patient denies any back or neck pain. He is feeling well at this time. Has not required any nausea medication. School is going well. He is a sophomore at [employer]. Past Medical History: Diagnosis Date Heart murmur 09/2002 HOME MEDICATIONS : adapalene-benzoyl peroxide (Epiduo Forte) 0.3-2.5 % gel with pump ondansetron ODT (ZOFRAN-ODT) 4 mg disintegrating tablet No Known Allergies Social History Tobacco Use Smoking status: Never Smokeless tobacco: Never Substance and Sexual Activity Drug use: Never Sexual activity: Not Currently Alcohol Use: Not on file Review of Systems: Review of Systems Constitutional: Negative for fever. Respiratory: Negative for cough, chest tightness and shortness of breath. Cardiovascular: Negative for chest pain and leg swelling. Gastrointestinal: Negative for constipation. Musculoskeletal: Negative for arthralgias. Neurological: Negative for dizziness and headaches. BP 120/62 (BP Location: Left arm, Patient Position: Sitting) Pulse 89 Temp 36.9 ??C (98.4 ??F) (Oral) Resp 16 Ht 181.6 cm (5' 11.5 ) Wt 58.2 kg (128 lb 6.4 oz) SpO2 99% BMI 17.66 kg/m?? Physical Exam: Physical Exam Vitals reviewed. Constitutional: General: He is not in acute distress. Appearance: He is well-developed. He is not ill-appearing. HENT: Right Ear: Tympanic membrane, ear canal and external ear normal. Left Ear: Tympanic membrane, ear canal and external ear normal. Eyes: Conjunctiva/sclera: Conjunctivae normal. Pupils: Pupils are equal, round, and reactive to light. Neck: Thyroid: No thyroid tenderness. Cardiovascular: Rate and Rhythm: Normal rate and regular rhythm. Pulses: Normal pulses. Heart sounds: Normal heart sounds. Pulmonary: Effort: Pulmonary effort is normal. Breath sounds: Normal breath sounds. No wheezing. Abdominal: Palpations: Abdomen is soft. Musculoskeletal: General: Normal range of motion. Thoracic back: Scoliosis present. Right lower leg: No edema. Left lower leg: No edema. Comments: Slight asymmetry of shoulders, right lower. No changes in gait or bony tenderness. Lymphadenopathy: Cervical: No cervical adenopathy. Skin: General: Skin is warm and dry. Neurological: Mental Status: He is alert and oriented to person, place, and time. Psychiatric: Speech: Speech normal. Behavior: Behavior normal. Thought Content: Thought content normal. Assessment & Plan: Diagnoses and all orders for this visit: History of choking (Primary) Assessment & Plan: Reviewed ER documentation and imaging. Patient is doing well and not having any difficulty eating/choking at this time. No longer feeling any nausea. No cough or reflux symptoms. I reviewed follow-upprecautions with patients and he will follow-up as needed. Scoliosis, unspecified scoliosis type, unspecified spinal region Assessment & Plan: Very mild; denies neck, back or hip pain. Will continue to monitor. BMI less than 19,adult Tia Barragan NP We discussed dose, use, and potential side effects of medication. Risks and interactions reviewed with patient. Indications for testing reviewed. Patient has been instructed to contact the office with any signs or symptoms that are of concern. The patient is to contact the office with any change in, worsening, or non-improvement in condition. Patient verbalized understanding. The patient was given the opportunity to ask all questions and to have all questions answered. Patient is agreement withthe plan of care. There may be grammatical errors in this note due to use of voice recognition software. documented in this encounter Miscellaneous Notes * Assessment & Plan Note - Tia Barragan NP - 07/26/2022 1:53 PM CDT Associated Problem(s): Scoliosis Very mild; denies neck, back or hip pain. Will continue to monitor. * Assessment & Plan Note - Tia Barragan NP - 07/26/2022 11:28 AM CDT Associated Problem(s): History of choking Reviewed ER documentation and imaging. Patient is doing well and not having any difficulty eating/choking at this time. No longer feeling any nausea. No cough or reflux symptoms. I reviewed follow-upprecautions with patients and he will follow-up as needed. documented in this encounter Plan of Treatment Not on file documented as of this encounter Visit Diagnoses Diagnosis History of choking- Primary Scoliosis, unspecified scoliosis type, unspecified spinal region BMI less than 19,adult documented in this encounter Care Teams V Belt Builder Relationship Specialty Start Date End Date [place] [address] PCP - General Family Medicine 05/24/21 Karolina Martínez NP [address] [place] [address] Nurse Practitioner Family Medicine 05/24/21 documented as of this encounter
--- OUTSIDE RECORDS SUMMARY | 2024-03-31 02:11 | XMS_ITS | Encounter Summary ---
Author Organization [facility] Healthcare Address [address] [place] [address] Care Team Providers Care Team Driver Name Role Phone Carlyle Stokes MD Primary Care Provider [phone] Karolina Martínez AQUA AMMONIA OPERATOR Unavailable Reason for Visit * Reason Comments Vomiting Encounter Details Date Type Department Care Team ([facility] Contact Info) Description 07/19/2022 7:29 PM CDT - 07/19/2022 11:45 PM CDT Emergency [facility] Emergency Department [address] [place] [address] Kade Robin MD [address] [place] [address] Choking due to food (regurgitated), initial encounter (Primary Dx); Nausea and vomiting, unspecified vomiting type Discharge Disposition: Discharge to home or self care Social History Tobacco Use Types Packs/Day Years Used Date Smoking Tobacco: Never Smokeless Tobacco: Never PHQ-2 Answer Date Recorded PHQ-2 Total Score 0 01/28/2022 Personal Safety Answer Date Recorded Have you ever been in or are you currently in a harmful physical or emotional relationship or is someone making you feel afraid or unsafe? Denies 07/19/2022 Sex and Gender Information Value Date Recorded Sex Assigned at Not on file Legal Sex Male 2:03 PM CDT Gender Identity Male 03/19/2024 9:16 AM SAFETY SPECIALIST Sexual Orientation Straight 03/19/2024 9: 16 AM SAFETY SPECIALIST documented as of this encounter Last Filed Vital Signs Vital Sign Reading Time Taken Comments Blood Pressure 142/90 07/19/2022 7:28 PM CDT Pulse 79 07/19/2022 7:28 PM CDT Temperature 36.7 ??C (98.1 ??F) 07/19/2022 7:28 PM CD T Respiratory Rate 16 07/19/2022 7:28 PM CDT Oxygen Saturation 100% 07/19/2022 7:28 PM CDT Inhaled Oxygen Concentration - - Weight - - Height - - Body Mass Index - - documented in this encounter Discharge Instructions * Discharge Instructions* Marcelo Schuster MD - 07/19/2022 8:20 PM CDT Return to the ER if another choking spell that doesn't end right away -- Loss of consciousness -- Shortness of breath or noisy breathing -- Skin, lips, and nails turning blue or dusky -- Can't speak -- Can't cough forcefully -- develop fever >100.4 * Attachments The following attachments cannot be sent through Care Everywhere. * Choking Spell (Adult) (Samoan) * Performing the Heimlich Maneuver (AfterCare(R) Instructions(ER/ED)) (Samoan) documented in this encounter Medications at Time of Discharge ondansetron ODT (ZOFRAN-ODT) 4 mg disintegrating tablet Dissolve 1 tablet oral every 4 hours as needed for nausea or vomiting. 15 tablet 07/19/2022 adapalene-benzoyl peroxide (Epiduo Forte) 0.3-2.5 % gel with pumpIndications:Acne , unspecified acne type Apply 0.25 g (1 Pump total) topically nightly APPLY A PEA-SIZED AMOUNT TOPICALLY TO CLEAN DRY SKIN AT BEDTIME 45 g 11 01/28/2022 4 documented as of this encounter Ordered Prescriptions Prescription Sig Dispense Quantity Refills Last Filled Start Date End Date ondansetron ODT (ZOFRAN-ODT) 4 mg disintegrating tablet Dissolve 1 tablet oral every 4 hours as needed for nausea or vomiting. 15 tablet 07/19/2022 documented in this encounter Discharge Disposition Disposition Code Departure Means Destination Comment s Discharge to home or self care documented in this encounter ED Notes * Marcelo Schuster MD - 07/19/2022 7:42 PM CDT HPI Chief Complaint Patient presents with ??? Vomiting HPI 21-year-old male presenting to the ER with reports of clear emesis. Patient reports that he choked on chicken in required Heimlich maneuver to remove the chicken. He presented to the ER 2 hours afterthis episode with reports to up to 10 bouts of clear emesis. Patient states this chicken did not have any bones. He denies abdominal pain or pain/trouble swallowing. No fever. No SOB. At baseline he does not have trouble swallowing. Patient History: Patient Active Problem List Diagnosis Date Noted ??? Encounter for medical examination to establish care 01/25/2021 ??? Refused influenza vaccine 01/25/2021 ??? Body mass index (BMI) less than 16.5 01/25/2021 Past Medical History: Diagnosis Date ??? Heart murmur 09/2002 Past Surgical History: Procedure Laterality Date ??? TONSILLECTOMY Bilateral 2008 ??? WISDOM TOOTH EXTRACTION Bilateral 2018 Family History Problem Relation Age of Onset ??? Pancreatic cancer Maternal Grandfather ??? Coronary artery disease Maternal Grandfather ??? Cancer Maternal Grandfather Social History Tobacco Use ??? Smoking status: Never ??? Smokeless tobacco: Never Vaping Use ??? Vaping status: Never Used Passive vaping exposure: Yes Substance and Sexual Activity ??? Alcohol use: Not on file ??? Drug use: Never ??? Sexual activity: Not Currently Social History Social History Narrative ??? Not on file Review of Systems Review of Systems Constitutional: Negative for activity change, appetite change, chills and fever. HENT: Negative. Eyes: Negative. Respiratory: Positive for choking. Negative for apnea, cough, chest tightness, shortness of breath and wheezing. Cardiovascular: Negative for chest pain. Gastrointestinal: Positive for vomiting (non bloody, non billious). Negative for abdominal pain, blood in stool and nausea. Neurological: Negative for speech difficulty and weakness. Psychiatric/Behavioral: Negative for agitation, behavioral problems and confusion. Physical Exam ED Triage Vitals [07/19/221927] Temp Pulse Resp BP SpO2 36.7 ??C (98.1 ??F) 79 16 142/90 100 % Temp src Heart Rate Source Patient Position BP Location FiO2 (%) Temporal -- -- -- -- Height Height Method Weight Weight Method -- -- -- -- Physical Exam Constitutional: General: He is not in acute distress. Appearance: Normal appearance. He is normal weight. He is not ill-appearing, toxic-appearing or diaphoretic. HENT: Head: Normocephalic and atraumatic. Eyes: Extraocular Movements: Extraocular movements intact. Cardiovascular: Rate and Rhythm: Normal rate and regular rhythm. Pulmonary: Effort: Pulmonary effort is normal. No respiratory distress. Breath sounds: Normal breath sounds. No wheezing or rhonchi. Chest: Chest wall: No tenderness. Abdominal: General: Abdomen is flat. Bowel sounds are normal. There is no distension. Palpations: Abdomen is soft. Tenderness: There is no abdominal tenderness. There is guarding. There is no rebound. Musculoskeletal: Cervical back: Normal range of motion and neck supple. No rigidity or tenderness. Lymphadenopathy: Cervical: No cervical adenopathy. Skin: General: Skin is warm. Neurological: General: No focal deficit present. Mental Status: He is alert and oriented to person, place, and time. Psychiatric: Mood and Affect: Mood normal. Behavior: Behavior normal. Thought Content: Thought content normal. MDM Patient with episode of choking on chicken w/o bones. Vomiting a common presentation after heimlichmaneuver. No alarm signs- neg bloody emesis, no trouble swallowing, no abdominal pain, no SOB/pleuritic pain. Patient is stable and advised to follow up w/ PCP. Medical Decision Making Amount and/or Complexity of Data Reviewed Radiology: ordered. Decision-making details documented in ED Course. Risk Prescription drug management. Attending Summary of Care ED Course as of 07/19/222117 Time: 07/19 2026 Comment: Patient treated with IV fluids, Protonix, and ondansetron. By: Marcelo Schuster MD Time: 07/20 2051 Value: XR Chest Pa Lateral 2 Views Comment: Unremarkable chest radiographs. By: Marcelo Schuster MD Time: 07/19 2116 Comment: Shift end. Singed off to Dr. Robin who will take over care. By: Marcelo Schuster MD Choking due to food (regurgitated), initial encounter Nausea and vomiting, unspecified vomiting type Marcelo Schuster MD [facility] Family medicine [id number] Marcelo Schuster MD Resident 07/19/222117 Cosigned by Kade Robin MD at 07/19/2022 11:31 PM CDT Associated attestation - Kade Robin MD - 07/19/2022 11:31 PM CDT I have seen and examined the patient on 07/19/22. I agree with the findings and plan of care as documented in the resident's note. I personally saw and examined the patient. I have reviewed and agree with resident's findings including all diagnostic interpretations and treatment plans as documented. I was present for liriano portions of separately performed procedures and inclusive time noted in any critical care situation. MEDICAL DECISION MAKING Number and Complexity of Problems Differential Diagnosis: [Choking episode, foreign body in esophagus] [facility] Data Discussed with: [Patient, family] Treatment and Disposition ED Course: [Improved with fluids, Zofran] Shared decision making: Patient, family agreeable to discharge Code status: [Full] * Yvonne Santizo RN - 07/19/2022 7:24 PM CDT Pt choked on a piece of chicken and his mom did the heimlich to get the chicken up. Pt states he has been vomiting clear liquid since. documented in this encounter Plan of Treatment Not on file documented as of this encounter Procedures Procedure Name Priority Date/Time Associated Diagnosis Comments CT SOFT TISSUE NECK WO CONTRAST ED 07/19/2022 10:52 PM CDT XR CHEST PA LATERAL 2 VIEWS ED 07/19/2022 8:19 PM CDT documented in this encounter Results * CT Neck Soft Tissue WO Contrast (07/19/2022 10:52 PM CDT) Anatomical Region Laterality Modality Head and Neck N/A Computed Tomogra phy 07/19/2022 10:5 8 PM CDT Narrative 07/19/2022 11:05 PM CDT EXAM DESCRIPTION: ?? CT SOFT TISSUE NECK WO CONTRAST REASON FOR STUDY: Concern for FB Pt swallowed chicken earlier, feels like still in throat, n/v ?? TECHNIQUE: Computed tomographic images of the neck without intravenous contrast images from C1 arches through the meggan were obtained. ?? Reconstructed MPR images reviewed. ??All images stored on PACS. The sensitivity for detection of abnormalities is reduced without the use of intravenous contrast. ??Automated exposure control was used as a dose optimization technique for this examination. COMPARISON: ?? None FINDINGS: SOFT TISSUE: ?? No mass, edema or inflammatory change. ORAL CAVITY/FLOOR OF MOUTH, PHARYNX, LARYNX, HYPOPHARYNX: ?? No abnormal findings. LYMPHADENOPATHY: ?? No adenopathy. MAJOR SALIVARY GLANDS: ?? No solid or cystic masses. ??No inflammatory changes. THYROID: ?? Normal size. ??No nodules greater than 1 cm. INTRACRANIAL/SKULL BASE/INCLUDED ORBITS: ?? Limited intracranial evaluation. No abnormal findings. PARANASAL SINUSES: ?? Well-aerated. CERVICAL SPINE: ?? Scoliosis. ??Mild multilevel degenerative disc disease. ?? Small C6-C7 disc bulge causing mild spinal canal stenosis. LUNG APICES: ?? Clear. OTHER: ?? No other significant finding. IMPRESSION: Normal noncontrast CT of the neck. ?? No radiopaque foreign body. THIS IS AN ELECTRONICALLY VERIFIED FINAL REPORT 07/19/2022 11:05 PM - Electronically signed by ??Jose Martin Burciaga M.D. BB: SHEN D: ??07/19/2022 11:05 PM T: ??07/19/2022 11:05 PM Report ID: [id number] Reading Location: ??[id number] Procedure Note Jose Martin Burciaga MD PhD - 07/19/2022 EXAM DESCRIPTION: CT SOFT TISSUE NECK WO CONTRAST REASON FOR STUDY: Concern for FB Pt swallowed chicken earlier, feels like still in throat, n/v TECHNIQUE: Computed tomographic images of the neck without intravenous contrast images from C1 arches through the meggan were obtained. Reconstructed MPR images reviewed. All images stored on PACS. Thesensitivity for detection of abnormalities is reduced without the use of intravenous contrast. Automated exposure control was used as a dose optimization technique for this examination. COMPARISON: None FINDINGS: SOFT TISSUE: No mass, edema or inflammatory change. ORAL CAVITY/FLOOR OF MOUTH, PHARYNX, LARYNX, HYPOPHARYNX: No abnormal findings. LYMPHADENOPATHY: No adenopathy. MAJOR SALIVARY GLANDS: No solid or cystic masses. No inflammatorychanges. THYROID: Normal size. No nodules greater than 1 cm. INTRACRANIAL/SKULL BASE/INCLUDED ORBITS: Limited intracranialevaluation. No abnormal findings. PARANASAL SINUSES: Well-aerated. CERVICAL SPINE: Scoliosis. Mild multilevel degenerative disc disease. Small C6-C7 disc bulge causing mild spinal canal stenosis. LUNG APICES: Clear. OTHER: No other significant finding. IMPRESSION: Normal noncontrast CT of the neck. No radiopaque foreign body. THIS IS AN ELECTRONICALLY VERIFIED FINAL REPORT 07/19/2022 11:05 PM - Electronically signed by Jose Martin Ruano.D. BB: SHEN Report ID: [id number] Reading Location: [id number] Kade Robin MD IMG CT PROCEDURES Final Resu lt * XR Chest Pa Lateral 2 Views (07/19/2022 8:19 PM CDT) Anatomical Region Laterality Modality Body, Chest N/A Computed Radiogr aphy 07/19/2022 8:45 PM CDT Narrative 07/19/2022 8:46 PM CDT EXAM DESCRIPTION: ?? XR CHEST PA LATERAL 2 VIEWS REASON FOR STUDY: ?? possible foreign body ?? 21-year-old male presenting to the ER with reports of clear emesis. ??Patient reports that he choked on chicken in required Heimlich maneuver to remove the chicken. ?? TECHNIQUE: ??Frontal and lateral views of the chest. COMPARISON: None FINDINGS: LUNGS AND PLEURA: ??No focal airspace opacity, pleural effusion, or pneumothorax identified. HEART/MEDIASTINUM: ??Trachea midline. ?? Cardiac silhouette normal in size. Mediastinal contours appear normal. BONES: ??Unremarkable. ?? CHEST WALL: ??Unremarkable. ?? UPPER ABDOMEN: ??Unremarkable. ?? IMPRESSION: Unremarkable chest radiographs. ?? THIS IS AN ELECTRONICALLY VERIFIED FINAL REPORT 07/19/2022 8:46 PM - Electronically signed by ??Jeferson Meier M.D. AR: KHADIJAH D: ??07/19/2022 8:46 PM T: ??07/19/2022 8:46 PM Report ID: [id number] Reading Location: ??[id number] Procedure Note Jeferson Meier MD - 07/19/2022 EXAM DESCRIPTION: XR CHEST PA LATERAL 2 VIEWS REASON FOR STUDY: possible foreign body 21-year-old male presenting to the ER with reports of clear emesis.Patient reports that he choked on chicken in required Heimlich maneuver to removethe chicken. TECHNIQUE: Frontal and lateral views of the chest. COMPARISON: None FINDINGS: LUNGS AND PLEURA: No focal airspace opacity, pleural effusion, or pneumothorax identified. HEART/MEDIASTINUM: Trachea midline. Cardiac silhouette normal in size. Mediastinal contours appear normal. BONES: Unremarkable. CHEST WALL: Unremarkable. UPPER ABDOMEN: Unremarkable. IMPRESSION: Unremarkable chest radiographs. THIS IS AN ELECTRONICALLY VERIFIED FINAL REPORT 07/19/2022 8:46 PM - Electronically signed by Jeferson Meier M.D. AR: KHADIJAH Report ID: [id number] Reading Location: [place] [address] Marcelo Schuster MD IMG XR PROCEDURES Final Result documented in this encounter Visit Diagnoses Diagnosis Choking due to food (regurgitated), initial encounter- Primary Nausea and vomiting, unspecified vomiting type documented in this encounter Administered Medications Inactive Administered Medications - up to 3 most recent administrations Medication Order MAR Action Action Date Dose Rate Site ondansetron (ZOFRAN) injection 4 mg 4 mg, intravenous, Administer over 2 Minutes, Once, On Fri07/19/22 at 2004, For 1 dose, Indications: Nausea, VomitingIndications:Nausea,Vo miting Given 07/19/2022 8:45 PM CDT 4 mg ondansetron (ZOFRAN) injection 4 mg 4 mg, intravenous, Administer over 2 Minutes, Once, On Fri07/19/22 at 2149, For 1 dose Given 07/19/2022 10:15 PM CDT 4 mg pantoprazole (PROTONIX) 4 mg/mL injection 40 mg 40 mg, intravenous, Administer over 2 Minutes, Once, On Fri07/19/22 at 2026, For 1 dose, For IV Push administration for adults- 40 mg vial: add 10 mL of sodium chloride 0.9% to achieve a final concentration of 4 mg/mL, Indications: Treatment of Non-Bleeding Gastric DisorderIndications:Treatment of Non-Bleeding Gastric Disorder Given 07/19/2022 8:46 PM CDT 40 mg sodium chloride 0.9% infusion 100 mL/hr, intravenous, Continuous, Starting on Fri07/19/22 at 2009 New Bag 07/19/2022 8:40 PM CDT 100 mL/hr 100 mL/hr documented in this encounter Active and Recently Administered Medications Times are shown in CDT. Scheduled Medication Order 07/17/2022 07/18/2022 07/19/2022 ondansetron (ZOFRAN) injection 4 mg (COMPLETED) 4 mg, intravenous, Administer over 2 Minutes, Once, On Fri07/19/22 at 2003, For 1 dose, Indications: Nausea, Vomiting 2044 (Given - Provid er: Eva Mueller RN) ondansetron (ZOFRAN) injection 4 mg (COMPLETED) 4 mg, intravenous, Administer over 2 Minutes, Once, On Fri07/19/22 at 214, For 1 dose 2214 (Given - Provid er: Eva Mueller RN) pantoprazole (PROTONIX) 4 mg/mL injection 40 mg (COMPLETED) 40 mg, intravenous, Administer over 2 Minutes, Once, On Fri07/19/22 at 2026, For 1 dose, For IV Push administration for adults- 40 mg vial: add 10 mL of sodium chloride 0.9% to achieve a final concentration of 4 mg/mL, Indications: Treatment of Non-Bleeding Gastric Disorder 2045 (Given - Provid er: Eva Mueller RN) Continuous Medication Order 07/17/2022 07/18/2022 07/19/2022 sodium chloride 0.9% infusion 100 mL/hr, intravenous, Continuous, Starting on Fri07/19/22 at 2008 2039 (New Bag - Prov ider: Eva Mueller RN)2345 (Stopped - Provider: Eva Mueller RN) documented in this encounter Care Teams Team Driver Relationship Specialty Start Date End Date Carlyle Stokes MD [address] [place] [address] PCP - General Family Medicine 05/24/21 Karolina Martínez NP [address] [place] [address] Nurse Practitioner Family Medicine 05/24/21 documented as of this encounter
--- OUTSIDE RECORDS SUMMARY | 2024-03-31 02:11 | XMS_ITS | Encounter Summary ---
Author Organization [facility] Medical Group Address [address] [place] [address] Care Team Providers Care Forensic Engineer Name Role Phone Carlyle Stokes MD Primary Care Provider [phone] Karolina Martínez NP Unavailable [phone] Reason for Visit * Reason Comments Annual Exam Patient presents tod for his annual physical. Encounter Details Date Type Department Care Team (Late st Contact Info) Description 01/28/2022 8:30 AM GRANITE CHIP TERRAZZO FINISHER Office Visit [facility] [address] [address] Miladys Boucher NP [address] [place] [id number] Annual physical exam (Primary Dx); Acne, unspecified acne type Social History Tobacco Use Types Packs/Day Years Used Date Smoking Tobacco: Never Smokeless Tobacco: Never Tobacco Cessation:Counseling Given: Not Answered PHQ-2 Answer Date Recorded PHQ-2 Total Score 0 01/28/2022 Sex and Gender Information Value Date Recorded Sex Assigned at Not on file Legal Sex Male 2:03 PM CDT Gender Identity Male 03/19/2024 9:16 AM GRANITE CHIP TERRAZZO FINISHER Sexual Orientation Straight 03/19/2024 9: 16 AM GRANITE CHIP TERRAZZO FINISHER documented as of this encounter Last Filed Vital Signs Vital Sign Reading Time Taken Comments Blood Pressure 136/62 01/28/2022 8:29 AM GRANITE CHIP TERRAZZO FINISHER Pulse 89 01/28/2022 8:29 AM GRANITE CHIP TERRAZZO FINISHER Temperature - - Respiratory Rate 16 01/28/2022 8:29 AM GRANITE CHIP TERRAZZO FINISHER Oxygen Saturation 98% 01/28/2022 8:29 AM GRANITE CHIP TERRAZZO FINISHER Inhaled Oxygen Concentration - - Weight 58.5 kg (129 lb) 01/28/2022 8:29 AM GRANITE CHIP TERRAZZO FINISHER Height 181.6 cm (5' 11.5 ) 01/28/2022 8:29 AM CS T Body Mass Index 17.74 01/28/2022 8:29 AM GRANITE CHIP TERRAZZO FINISHER documented in this encounter Ordered Prescriptions Prescription Sig Dispense Quantity Refills Last Filled Start Date End Date adapalene-benzoyl peroxide (Epiduo Forte) 0.3-2.5 % gel with pumpIndications:Ac ne, unspecified acne type Apply 0.25 g (1 Pump total) topically nightly APPLY A PEA-SIZED AMOUNT TOPICALLY TO CLEAN DRY SKIN AT BEDTIME 45 g 01/28/2022 4 documented in this encounter Progress Notes * Miladys Boucher, TAWANDA - 01/28/2022 8:30 AM CST Patient ID: Ronald Christensen is a 21 y.o. male Chief Complaint. Chief Complaint Patient presents with Annual Exam Patient presents today for his annual physical. HPI: Ronald Christensen presents today for annual physical. 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 Exercises. Eats healthy. Rare fast food. Denies alcohol, tobacco, vaping. Not sexually active. Acne well controlled on Epiduo. Denies chest pain, shortness of breath, palpitations, bowel, bladder issues. Pleasant young man. Hopeful to finish school and moved to [facility] or [place]. Past Medical History: Diagnosis Date Heart murmur 09/2002 Past Surgical History: Procedure Laterality Date TONSILLECTOMY Bilateral 2009 WISDOM TOOTH EXTRACTION Bilateral 2019 HOME MEDICATIONS : adapalene-benzoyl peroxide (Epiduo Forte) 0.3-2.5 % gel with pump adapalene-benzoyl peroxide (Epiduo Forte) 0.3-2.5 % gel with pump No Known Allergies Social History Tobacco Use Smoking status: Never Smokeless tobacco: Never Substance and Sexual Activity Drug use: Never Sexual activity: Not Currently Alcohol Use: Not on file Family History Problem Relation Age of Onset Pancreatic cancer Maternal Grandfather Coronary artery disease Maternal Grandfather Cancer Maternal Grandfather Review of Systems: Review of Systems Constitutional: Negative for chills, fever and unexpected weight change. HENT: Negative for trouble swallowing. Eyes: Negative for visual disturbance. Respiratory: Negative for shortness of breath. Cardiovascular: Negative for chest pain, palpitations and leg swelling. Gastrointestinal: Negative for abdominal pain, blood in stool, constipation and diarrhea. Endocrine: Negative for polydipsia, polyphagia and polyuria. Genitourinary: Negative for difficulty urinating. Musculoskeletal: Negative for arthralgias, joint swelling and myalgias. Neurological: Negative for light-headedness. Psychiatric/Behavioral: Negative for dysphoric mood. The patient is not nervous/anxious. Vitals: 01/28/22 0829 BP: 136/62 BP Location: Right arm Patient Position: Sitting Pulse: 89 Resp: 16 SpO2: 98% Weight: 58.5 kg (129 lb) Height: 181.6 cm (5' 11.5 ) Physical [...] for this visit: Annual physical exam (Primary) Visit preventive in nature. We reviewed lifestyle recommendations including diet and exercise. STI screening when necessary. Continue with excellent lifestyle. Follow-up on 1 year or sooner for any concerns. Acne, unspecified acne type - adapalene-benzoyl peroxide (Epiduo Forte) 0.3-2.5 % gel with pump; Apply 0.25 g (1 Pump total) topically nightly APPLY A PEA-SIZED AMOUNT TOPICALLY TO CLEAN DRY SKIN AT BEDTIME Will controlled with current regimen. Will continue. All past family, medical, and social history [...] in 2-3 business days, discussed benefits of MyChart in regard to patient experience. The patient was given the opportunity to have all questions answered today and was in agreementwith the plan of care. BMI Follow-up includes: nutrition counseling, exercise counseling, and education provided. Body mass index is 17.74 kg/m??. Miladys Boucher NP ITE CHIP TERRAZZO FINISHER documented in this encounter Plan of Treatment [...] TO CLEAN DRY SKIN AT BEDTIME Reorder 05/24/2021 01/28/2022 documented as of this encounter Care Teams Forensic Engineer Relationship Specialty Start Date End Date [place] [address] [place] [address] PCP - General Family Medicine 05/24/21 Karolina Martínez NP [address] [place] [address] Nurse Practitioner Family Medicine 05/24/21 documented as of this encounter
--- OUTSIDE RECORDS SUMMARY | 2024-03-31 02:11 | XMS_ITS | Encounter Summary ---
Author Organization [facility] Address [address] [place] [address] Care Team Providers Care Plastic Straightening Roll Operator Name Role Phone Carlyle Stokes MD Primary Care Provider [phone] Karolina Martínez BUTTON RIVETER Unavailable [phone] Encounter Details Date Type Department Care Team (Late st Contact Info) Description 11/29/2021 Telephone [facility] [address] [id number] Karolina Martínez BUT[employer] R[employer] [address] [facility] [address] [place], [place] [id number] Social History Tobacco Use Types Packs/Day Years Used Date Smoking Tobacco: Never Smokeless Tobacco: Never PHQ-2 Answer Date Recorded PHQ-2 Total Score 0 01/25/2021 Sex and Gender Information Value Date Recorded Sex Assigned at Not on file Legal Sex Male 2:03 PM CDT Gender Identity Male 03/19/2024 9:16 AM MOLDING ASSOCIATE Sexual Orientation Straight 03/19/2024 9: 16 AM MOLDING ASSOCIATE documented as of this encounter Miscellaneous Notes * Telephone Encounter - Mariah Yoon - 11/29/2021 1:18 PM CDT pt will call to r/s appt, [employer] Karolina leaving practice, letter sent 11/29 sj documented in this encounter Plan of Treatment Not on file documented as of this encounter Visit Diagnoses Not on filedocumented in this encounter Care Teams Plastic Straightening Roll Operator Relationship Specialty Start Date End Date Carlyle Stokes MD [address] [place] [address] PCP - General Family Medicine 05/24/21 Karolina Martínez NP [address] [place] [address] Nurse Practitioner Family Medicine 05/24/21 documented as of this encounter
--- OUTSIDE RECORDS SUMMARY | 2024-03-31 02:11 | XMS_ITS | Encounter Summary ---
Author Organization [facility] Address [address] [place] [address] Care Team Providers Care Hazmat Tanker Driver Name Role Phone No, Physician Primary Care Provider [phone] Reason for Visit * Reason Comments [facility] Encounter Details Date Type Department Care Team ([facility] Contact Info) Description 01/25/2021 2:30 PM CDT Office Visit [facility] [address] [phone] Karolina Martínez, AUTOMATION CONTROLS SPECIALIST [address] [facility] [address] [place] [address] Encounter for medical examination to establish care (Primary Dx); Refused influenza vaccine; Body mass index (BMI) less than 16.5 Social History Tobacco Use Types Packs/Day Years Used Date Smoking Tobacco: Never Smokeless Tobacco: Never PHQ-2 Answer Date Recorded PHQ-2 Total Score 0 01/25/2021 Sex and Gender Information Value Date Recorded Sex Assigned at Not on file Legal Sex Male 2:03 PM CDT Gender Identity Male 03/19/2024 9:16 AM RAPID OUTSOLE STITCHER Sexual Orientation Straight 03/19/2024 9: 16 AM RAPID OUTSOLE STITCHER documented as of this encounter Last Filed Vital Signs Vital Sign Reading Time Taken Comments Blood Pressure 126/70 01/25/2021 2:56 PM CDT Pulse 84 01/25/2021 2:56 PM CDT Temperature 36.1 ??C (97 ??F) 01/25/2021 2:56 PM CDT Respiratory Rate 14 01/25/2021 2:56 PM CDT Oxygen Saturation 99% 01/25/2021 2:56 PM CDT Inhaled Oxygen Concentration - - Weight 53.3 kg (117 lb 6.4 oz) 01/25/2021 2:56 P M CDT Height 180.3 cm (5' 11 ) 01/25/2021 2:56 PM CDT Body Mass Index 16.37 01/25/2021 2:56 PM CDT Body Mass Index Percentile 0.13% 01/25/2021 2:5 6 PM CDT Growth Chart: [facility] (Boys, 2-2 0 Years) documented in this encounter Progress Notes * Karolina Martínez, AUTOMATION CONTROLS SPECIALIST - 01/25/2021 2:30 PM CDT Images from the original note were not included. [facility] Chief Complaint. Chief Complaint Patient presents with ??? New Patient Patient is here to establish care w/ PCP HPI. Patient is a 20 y.o. male Pt here to establish care. Former PCP: Dr Chloe Elise ([facility]) Other MD: n/a Colonoscopy: n/a Mhx: heart murmur (from ) Fhx: MGF pancreatic cancer & CAD Shx: tonsillectomy 2008 Rec'd Pfizer vaccine 08/2020. Declines flu vaccine. UTD on all other immunizations. 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 Plans to go into computer science/engineering. Runs on treadmill at home, occasionally goes to [employer] gym to do strength training/wt lifting. Past Medical History: Diagnosis Date ??? Heart murmur 09/2002 Past Surgical History: Procedure Laterality Date ??? TONSILLECTOMY Bilateral 2008 ??? WISDOM TOOTH EXTRACTION Bilateral 2019 HOME MEDICATIONS : adapalene/benzoyl peroxide (EPIDUO FORTE TOP) No Known Allergies Social History Tobacco Use ??? Smoking status: Never Smoker ??? Smokeless tobacco: Never Used Substance Use Topics ??? Alcohol use: Not on file Family History Problem Relation Age of Onset ??? Pancreatic cancer Maternal Grandfather ??? Coronary artery disease Maternal Grandfather Review of Systems: Review of Systems Constitutional: Negative. Negative for chills and fever. Eyes: Negative. Negative for visual disturbance (wears glasses). Respiratory: Negative. Negative for cough, shortness of breath and wheezing. Cardiovascular: Negative. Negative for chest pain, palpitations and leg swelling. Reports h/o heart murmur Gastrointestinal: Negative. Negative for constipation, diarrhea, nausea and vomiting. Musculoskeletal: Negative. Negative for arthralgias and myalgias. Skin: Negative. Negative for rash and wound. Allergic/Immunologic: Positive for environmental allergies (fall & spring). Neurological: Negative for dizziness, weakness and numbness. Psychiatric/Behavioral: Negative. Negative for dysphoric mood. The patient is not nervous/anxious. BP 126/70 (BP Location: Left arm, Patient Position: Sitting) Pulse 84 Temp 36.1 ??C (97 ??F) (Temporal) Resp 14 Ht 180.3 cm (5' 11 ) Wt 53.3 kg (117 lb 6.4 oz) SpO2 99% BMI 16.37 kg/m?? Physical Exam: Physical Exam Vitals and nursing note reviewed. Constitutional: Appearance: Normal appearance. He is well-developed and underweight. HENT: Head: Normocephalic. Right Ear: Hearing, tympanic membrane, ear canal and external ear normal. Left Ear: Hearing, tympanic membrane, ear canal and external ear normal. Nose: No congestion or rhinorrhea. Right Sinus: No maxillary sinus tenderness or frontal sinus tenderness. Left Sinus: No maxillary sinus tenderness or frontal sinus tenderness. Mouth/Throat: Comments: masked Eyes: General: Lids are normal. Gaze aligned appropriately. Extraocular Movements: Extraocular movements intact. Right eye: Normal extraocular motion and no nystagmus. Left eye: Normal extraocular motion and no nystagmus. Conjunctiva/sclera: Conjunctivae normal. Pupils: Pupils are equal, round, and reactive to light. Funduscopic exam: Right eye: No hemorrhage, AV nicking or papilledema. Red reflex present. Left eye: No hemorrhage, AV nicking or papilledema. Red reflex present. Neck: Trachea: Trachea and phonation normal. Cardiovascular: Rate and Rhythm: Normal rate and regular rhythm. No extrasystoles are present. Heart sounds: Normal heart sounds, S1 normal and S2 normal. No murmur heard. No friction rub. No gallop. Pulmonary: Effort: Pulmonary effort is normal. Breath sounds: Normal breath sounds and air entry. No decreased breath sounds, wheezing, rhonchi orrales. Abdominal: General: Abdomen is flat. Bowel sounds are normal. Palpations: Abdomen is soft. Tenderness: There is no abdominal tenderness. Musculoskeletal: General: Normal range of motion. Cervical back: Normal range of motion. Right lower leg: No edema. Left lower leg: No edema. Skin: General: Skin is warm and dry. Neurological: Mental Status: He is alert and oriented to person, place, and time. Mental status is at baseline. Psychiatric: Attention and Perception: Attention and perception normal. Mood and Affect: Mood and affect normal. Mood is not anxious or depressed. Behavior: Behavior is cooperative. Assessment & Plan: Diagnoses and all orders for this visit: Encounter for medical examination to establish care (Primary) Assessment & Plan: -reviewed screening guidelines: no family history of [...] to deal with bullying. Refused influenza vaccine Assessment & Plan: Discussed and the patient refuses immunization today. Educated regarding the need to vaccinate for personal protection and to limit the viruses in the community to protect those most vulnerable. Body mass index (BMI) less than 16.5 Assessment & Plan: Watches intake & exercises. Discussed healthy diet and importance of regular physical activity. BMI Follow-up includes: exercise counseling and education provided. Body mass index is 16.37 kg/m??. Karolina Martínez NP Cosigned by Carlyle Stokes MD at 02/20/2021 8:15 AM RAPID OUTSOLE STITCHER D OUTSOLE STITCHER documented in this encounter Miscellaneous Notes * Assessment & Plan Note - Karolina Martínez NP - 01/25/2021 3:40 PM CDT Associated Problem(s): Encounter for medical examination to establish care -reviewed screening guidelines: no family history of [...] with strangers) -strategies to deal with bullying. * Assessment & Plan Note - Karolina Martínez NP - 01/25/2021 3:39 PM CDT Associated Problem(s): Refused influenza vaccine Discussed and the patient refuses immunization today. Educated regarding the need to vaccinate for personal protection and to limit the viruses in the community to protect those most vulnerable. * Assessment & Plan Note - Karolina Martínez NP - 01/25/2021 3:39 PM CDT Associated Problem(s): Body mass index (BMI) less than 16.5 (Resolved 07/26/2022) Watches intake & exercises. Discussed healthy diet and importance of regular physical activity. documented in this encounter Plan of Treatment Not on file documented as of this encounter Visit Diagnoses Diagnosis Encounter for medical examination to establish care- Primary Refused influenza vaccine Body mass index (BMI) less than 16.5 documented in this encounter Historical Medications * This list may reflect changes made after this encounter. adapalene/benzoy l peroxide (EPIDUO FORTE TOP) Apply 45 g topically nightly APPLY A PEA-SIZED AMOUNT TOPICALLY TO CLEAN DRY SKIN AT BEDTIME 2 added in this encounter Care Teams Hazmat Tanker Driver Relationship Specialty Start Date End Date No, Physician PCP - General 09/14/20 05/23/21 documented as of this encounter
== END 2024-03-24 04:34 | disposition home or self-care (01) ==
PROVIDERS: Emergency Provider Emergency Medicine; PCP Family Medicine
DX: F10.129 Alcohol abuse with intoxication, unspecified (principal); Y90.8 Blood alcohol level of 240 mg/100 ml or more
CPT/HCPCS: 36415; 70450; 80053; 80307; 82077; 82948; 85025; 96365; 96366; 96375; 99284; A9270; J2405; J3480; J7030; J7040